=== PATIENT | male | born 2005 | race Caucasian/White ===

== ENCOUNTER 2025-09-08 09:45 | Emergency (ER) | payer SELFPAY | END 2025-09-08 10:04 | disposition home or self-care (01) | LOC: CSHERS 09:45 | DX: S01.81XD Laceration without foreign body of other part of head, subsequent encounter (principal); F17.200 Nicotine dependence, unspecified, uncomplicated; Z55.6 Problems related to health literacy; X58.XXXD Exposure to other specified factors, subsequent encounter ==